=== PATIENT | male | born 1975 | race Hispanic/Latino ===

== ENCOUNTER 2021-04-12 13:23 | Emergency (ER) | payer BC, SELFPAY ==
[2021-04-12] MEDS ORDERED: Lidocaine 1% PF 5 ML VIAL ONE ×2 (13:54→14:54)
[2021-04-12] MEDS ORDERED: Bacitracin 1 PK ONE ×2 (13:54→14:05)
[2021-04-12] MEDS ORDERED: Boostrix 0.5 ML (Tdap) VIAL ONE (14:04)
[2021-04-12] MEDS ORDERED: Ondansetron PF 4 MG/2 ML Vial ONE (14:05)
[2021-04-12] MEDS ORDERED: Clindamycin/D5W 900 mg/50 ml Premix Bag ONE (14:06)
[2021-04-12 14:08] LABS: #Eosinphils 0.1 thou/uL (0.0-0.7); #Lymphocytes 2.3 thou/uL (1.20-3.40); #Monocytes 0.8 thou/uL (0.11-0.59); #Neutrophils 4.7 thou/uL (1.40-6.50); %Basophils 0.5 % (0.0-1.0); %Lymphocytes 28.9 % (21.0-51.0); %Monocytes 9.5 % (0.0-10.0); Hemoglobin 15.6 g/dL (14.0-18.0); Mean Corpuscular HGB CONC 33.1 g/dL (32.0-36.0); Mean Corpuscular Hemoglobin 29.9 pg (27.0-31.0); Mean Corpuscular Volume 90.2 fL (78.0-98.0); Mean Platelet Volume 5.5 fL (7.4-10.4); Platelet Count 364 thou/uL (130-400); RBC Distribution Width 11.7 % (11.5-14.5); Red Blood Cell (RBC) Count 5.21 mill/uL (4.70-6.10); White Blood Cell (WBC) Count 7.8 thou/uL (4.8-10.8)
[2021-04-12 14:25] LABS: ALT (SGPT) 24 U/L (8-55); AST (SGOT) 11 U/L (5-34); Albumin 3.6 g/dL (3.5-5.0); Alkaline Phosphatase 106 U/L (40-110); Anion Gap 15 mmol/L (10-20); BUN (Urea Nitrogen) 9 mg/dL (8.9-20.6); Calc. Creatinine Clearance 0 mL/min (70-130); Calcium 8.9 mg/dL (7.8-10.44); Carbon Dioxide 26 mmol/L (22-29); Chloride 99 mmol/L (98-107); Globulin 4.2 g/dL (2.4-3.5); Glucose 410 mg/dL (70-105); Protein, Total 7.8 g/dL (6.0-8.3); Sodium 136 mmol/L (136-145)
[2021-04-12 14:42] LABS: Bilirubin, Total 0.3 mg/dL (0.2-1.2)
[2021-04-12] MEDS ORDERED: Insulin Regular 300 UNITS/3 ML VIAL ONE (15:01)
[2021-04-12 16:37] LABS: Lactic Acid 1.9 mmol/L (0.5-2.2)
== END 2021-04-12 17:30 | disposition home or self-care (01) ==
LOC: BURERS 13:23
DX: L03.011 Cellulitis of right finger (principal); E11.65 Type 2 diabetes mellitus with hyperglycemia; I10 Essential (primary) hypertension; F17.210 Nicotine dependence, cigarettes, uncomplicated
CPT/HCPCS: 10060; 36415; 36416; 80053; 83605; 85025; 90471; 90715; 93005; 96365; 96375; J1815; J2405; J3490